=== PATIENT | male | born 1955 | race Caucasian/White ===

== ENCOUNTER 2019-11-25 06:55 | Outpatient (NON) | payer BC, SELFPAY ==
[2019-11-25 18:16] LABS: SARS-CoV-2 RNA PCR Negative
== END 2019-11-25 06:56 ==
PROVIDERS: PCP Family Medicine; Visit Provider Family Medicine
DX: Z20.828 Contact with and (suspected) exposure to other viral communicable diseases (principal)
CPT/HCPCS: 87635; C9803; U0003

== ENCOUNTER 2020-04-30 08:20 | Emergency (ER) | payer BC, SELFPAY ==
--- NOTE | ~2020-04-30 | CT_ITS ---
EXAMINATION: CT abdomen pelvis wo con DATE: 04/30/2020 09:16 INDICATION: Right flank pain TECHNIQUE: Computed tomography (CT) of the abdomen and pelvis was performed without intravenous contr ast. The dose-length product (DLP) was 1671.52 mGy-cm. Automated exposure control and iterative recon struction technique were employed. COMPARISON: 04/05/2018 FINDINGS: A calcified nodule of the right middle lobe is consistent with old granulomatous disease. T he heart size is normal. The liver, spleen, pancreas, gallbladder, and adrenal glands are normal. The re is a 3 mm stone in the distal right ureter which causes mild right hydroureteronephrosis. There is a 4 mm nonobstructing stone of the left kidney. No pathologically enlarged abdominal or pelvic lymph nodes are identified. There is no free intraperitoneal gas or evidence of bowel obstruction. The adria endix is normal. There is severe lower lumbar spondylosis. IMPRESSION: 1. 3 mm stone of the distal right ureter causing mild right hydroureteronephrosis. 2. Left nephrolithiasis. Reviewed, dictated and finalized at location A. ER [employer] IMPRESSION: 1. 3 mm stone of the distal right ureter causing mild right hydroureteronephros is. 2. Left nephrolithiasis.
--- NOTE | ~2020-04-30 | XR_ITS ---
EXAMINATION: XR abdomen/kub 1V INDICATION: Right flank pain TECHNIQUE: Supine views of the abdomen were obtained on 2 radiographs. COMPARISON: CT from today FINDINGS: There is a faint calcification of the right pelvis in the expected location of the distal u reter which may reflect the right distal ureteral stone seen on CT. A 4 mm stone is seen in the upper pole of the left kidney. The bowel gas pattern is normal. Calcifications are noted of the prostate. There is lower lumbar spondylosis. IMPRESSION: 1. Faint right pelvic calcification which could reflect the known right distal ureteral stone. 2. Left nephrolithiasis. Reviewed, dictated and finalized at location A. ER [employer]
[2020-04-30 08:37] VITALS: BP 162/82; PULSE 55; RESP 18; TEMP 36.7; O2SAT 99
[2020-04-30 08:43] VITALS: BP 135/93; PULSE 51; RESP 18; O2SAT 97
--- NOTE | 2020-04-30 08:59 | ED.ABDPAIN ---
HPI - Abdominal Pain General Chief Complaint: Abdominal Pain Stated Complaint: rt abd, groin and flank pain Time Seen by Provider: 04/30/20 08:36 Source: patient Mode of arrival: ambulatory Limitations: no limitations History of Present Illness HPI narrative: This is a 64 year old male with history of multiple medical problems who presents for evaluation right lower abdominal pain. He states his pain started yesterday. He describes his pain as if an arrow was shot through his right side. He has associated right groin, testicle pain with nausea. He also reports frequent urge to have a bowel movement but he denies diarrhea. He denies urinary symptoms, fever, chills. He has not taken anything for pain and he currently rates his pain 4/10. At it's most intense, his pain is 8/10. MD elicited complaint: abdominal pain Onset (ago): day(s) (1) Pain Consistency: intermittent Location: RLQ Quality: stabbing Radiation: R flank Exacerbating factors: movement Relieving factors: nothing Associated symptoms: nausea Related Data Home Medications Medication Instructions Recorded Confirmed aspirin 325 mg tablet 325 mg PO DAILY 04/30/19 03/10/20 irbesartan 150 mg tablet 150 mg PO DAILY 04/30/19 03/10/20 metoprolol tartrate 25 mg tablet 25 mg PO DAILY 04/30/19 03/10/20 simvastatin 10 mg tablet 10 mg PO DAILY 04/30/19 03/10/20 rivaroxaban 20 mg tablet 20 mg PO DAILY 03/10/20 03/10/20 Allergies Allergy/AdvReac Type Severity Reaction Status Date / Time No Known Allergies Allergy Verified 04/30/20 08:31 Review of Systems Review of Systems: All systems reviewed & are unremarkable except as noted in HPI and below Constitutional: Constitutional: Denies chills and Denies fever(s) Cardiovascular: Cardiovascular: Reports chest pain (chronic) Gastrointestinal: Gastrointestinal: Reports abdominal pain, Denies diarrhea, Reports nausea and Denies vomiting Genitourinary: Genitourinary: Denies dysuria and Denies urinary frequency Musculoskeletal: Musculoskeletal: Reports back pain [facility] Past Medical History Medical History (Updated 04/30/20 @ 11:06 by Bárbara Davis MD) Atrial fibrillation Cardiac arrhythmia Diabetes Essential (primary) hypertension Heart disease Hyperlipidemia SE[place]STI[place]N on CPAP Type 2 diabetes mellitus without complication, with no history of insulin use Surgical History Surgical History (Updated 03/10/20 @ 10:36 by Fazal Aguilar APRN) History of eye surgery History of hand surgery History of total left knee replacement Family History Family History (Updated 03/10/20 @ 10:38 by Fazal Aguilar APRN) Father Acute myocardial infarction Mother Carcinoma of colon Social History Social History (Updated 03/10/20 @ 10:39 by Fazal Aguilar APRN) Smoking status: Former smoker Alcohol intake: current Substance use: current Substance use type: marijuana Additional living arrangements comments: Additional occupation/education comments: Retired from [employer] Gender identity (if verbalized by the patient): Male Exam Const: General: no acute distress and alert Nutritional Appearance: obese Orientation/consciousness: patient oriented x3 Eyes: EOM: EOMs intact bilaterally Chest: Chest palpation & inspection: normal inspection of the chest Resp: Effort & Inspection: normal respiratory effort and no retractions Auscultation: clear to auscultation bilaterally Cardio: Rate: bradycardic Rhythm: regular rhythm GI: GI Palp: Yes Soft to palpation, No Tenderness to palpation present (GI) and No Guarding due to palpation present (GI) Auscultation: normal bowel sounds Back/Spine/Pelvis: Back: no CVA tenderness Skin: General skin exam: normal color Neuro: General: patient oriented x3, moves all extremities and CN's II-XI intact bilaterally Extrem: General: edema Course Reevaluation(s) Reevaluation #1: Patient states he feels better. I disc
[2020-04-30] MEDS: ONDANSETRON INJ 4 MG/2 ML VIAL IV PUSH (09:01)
[2020-04-30] MEDS: HYDROmorphone HCL INJ (*CRX) 1 MG/ML SYR 0.5 MG IV PUSH (09:01)
[2020-04-30 09:08] LABS: Basophils Percent Auto 0.4 % (0.2-1.2); Eosinophils Absolute Auto 0.2 K/mm3 (0-0.3); Eosinophils Percent Auto 3.6 % (0-4.4); Hematocrit 41.9 % (42.0-52.0); Hemoglobin 14.2 g/dL (14.0-18.0); Immature Granulocyte Absolute 0.02 K/mm3 (0.00-0.031); Immature Granulocyte Percent A 0.4 % (0-0.5); Lymphocytes Absolute Auto 1.37 K/mm3 (0.9-3.2); Lymphocytes Percent Auto 27.2 % (18.3-44.2); Mean Corpuscular HGB Conc 33.9 g/dl (32-36); Mean Corpuscular Hemoglobin 31.8 pg (26-34); Mean Corpuscular Volume 93.7 fl (80-100); Mean Platelet Volume 9.7 fl (7.4-10.4); Monocytes Absolute Auto 0.4 K/mm3 (0.1-0.6); Monocytes Percent Auto 8.3 % (2.6-8.5); Neutrophils Percent Auto 60.1 % (45.5-73.1); Platelet Count Result 138 k/mm3 (150-375); Red Blood Count 4.47 M/mm3 (4.6-6.20); Red Cell Distribution Width 13.5 % (11.5-14.5)
[2020-04-30 09:10] LABS: Add Urine Microscopic? YES; Appearance Urine Cloudy (Clear); Bacteria Urine Trace /hpf; Bilirubin Urine Negative (Negative); Blood Urine 3+ (Negative); Color Urine Yellow (Yellow); Glucose Urine UA Negative (Negative); Ketones Urine Negative (Negative); Leukocyte Esterase Ur Negative LEU/UL (Negative); Mucus Urine Rare /lpf; Nitrate Urine Negative (Negative); Protein Urine 2+ mg/dL (Negative); Specific Grav Ur 1.025 (1.001-1.035); Squamous Epithelial Cell Urine Rare /hpf (Few); Urobilinogen Urine Negative mg/dL (<2.0)
[2020-04-30 09:20] LABS: Alanine Aminotransferase 31 U/L (4-50); Albumin Level 4.3 g/dL (3.5-5.1); Alkaline Phosphatase 92 U/L (38-126); Anion Gap 4 mmol/L (8-16); Aspartate Amino Transferase 27 U/L (17-59); Bilirubin,Total 0.5 mg/dL (0.2-1.3); Blood Urea Nitrogen 18 mg/dL (9-20); Calcium 9.5 mg/dL (8.4-10.2); Carbon Dioxide 26 mmol/L (22-30); Chloride 109 mmol/L (98-107); Estimated CRCL calculation 116 ml/min; Estimated Glomerular Filt Rate > 60; Glucose 127 mg/dL (75-110); Lipase 123 U/L (23-300); Potassium 4.4 mmol/L (3.4-5.0); Sodium 139 mmol/L (137-145)
[2020-04-30 09:35] VITALS: TEMP 36.7
--- NOTE | 2020-04-30 09:36 | PC.NURSE ---
Pt resting on cart in its lowest position with call button and personal items within reach. Pt and updated on poc. No questions or concerns voiced. Pt advised to press call button for assistance.
[2020-04-30 10:12] VITALS: BP 120/68; PULSE 47; RESP 15; O2SAT 95
[2020-04-30 10:35] VITALS: BP 136/88; PULSE 75; RESP 13; TEMP 36.7
[2020-04-30 11:25] VITALS: BP 139/93; PULSE 52; RESP 20; TEMP 37; O2SAT 96
== END 2020-04-30 11:28 | disposition home or self-care (01) ==
PROVIDERS: Emergency Provider General Practice; PCP Internal Medicine
DX: N13.2 Hydronephrosis with renal and ureteral calculous obstruction (principal); I48.91 Unspecified atrial fibrillation; I11.9 Hypertensive heart disease without heart failure; E11.9 Type 2 diabetes mellitus without complications; E78.5 Hyperlipidemia, unspecified; G47.33 Obstructive sleep apnea (adult) (pediatric); Z79.01 Long term (current) use of anticoagulants; Z79.82 Long term (current) use of aspirin; Z96.652 Presence of left artificial knee joint; Z87.891 Personal history of nicotine dependence
CPT/HCPCS: 36415; 74018; 74176; 80053; 81001; 83690; 85025; 87086; 96374; 96375; 99284; J1170; J2405

== ENCOUNTER → 2020-09-21 06:53 | Outpatient (CLI) | payer BC, SELFPAY ==
[2020-09-21 18:17] LABS: SARS-CoV-2 RNA PCR Negative
== END ==
PROVIDERS: PCP Internal Medicine; Visit Provider Internal Medicine
DX: R68.89 Other general symptoms and signs (principal); Z20.822 Contact with and (suspected) exposure to COVID-19
CPT/HCPCS: C9803; U0003; U0005

== ENCOUNTER 2021-09-26 14:00 | Emergency (ER) | payer MEDICARE, SELFPAY ==
--- NOTE | 2021-09-26 14:25 | ED.LOWEXIN ---
HPI - Extremity Injury (Lower) General Chief Complaint: Extremity Injury, Lower Stated Complaint: Left leg Pain Time Seen by Provider: 09/26/21 14:25 Source: patient, RN notes reviewed and old records reviewed Mode of arrival: ambulatory Limitations: no limitations History of Present Illness HPI Narrative: 65-year-old male with a history of diabetes, A. fib presents to the [facility] with redness, pain to the left lower extremity lateral aspect. Patient states that he was working out at [employer] over the weekend woke up this morning with this red and painful area. Related Data Home Medications Medication Instructions Recorded Confirmed metoprolol tartrate 25 mg tablet 25 mg PO DAILY 04/30/19 09/26/21 simvastatin 10 mg tablet 10 mg PO DAILY 04/30/19 09/26/21 rivaroxaban 20 mg tablet (Xarelto) 20 mg PO DAILY 03/10/20 09/26/21 tamsulosin 0.4 mg capsule 0.4 mg PO DAILY 08/18/21 09/26/21 Allergies Allergy/AdvReac Type Severity Reaction Status Date / Time No Known Allergies Allergy Verified 09/26/21 14:26 Review of Systems Review of Systems: All systems reviewed & are unremarkable except as noted in HPI and below Constitutional: Constitutional: Reports no additional constitutional complaints, Denies chills and Denies fever(s) Eyes: Eyes: Reports no additional eye complaints ENT: Reports system reviewed and no additional complaints, except as documented Cardiovascular: Cardiovascular: Reports no additional cardiovascular complaints Respiratory: Respiratory: Reports no additional respiratory complaints Gastrointestinal: Gastrointestinal: Reports no additional gastrointestinal complaints Musculoskeletal: Musculoskeletal: Reports no additional musculoskeletal complaints Integumentary/Breasts: Skin/Breast: Reports as per HPI (red with increased warmth lateral left lower leg) Neurologic: Reports system reviewed and no additional complaints, except as documented Psychiatric: Psychiatric: Reports no additional psychiatric complaints Allergic/Immunologic: Allergic/Immunologic: Reports no additional allergic/immunologic complaints [facility] Past Medical History Medical History Atrial fibrillation Cardiac arrhythmia Diabetes Essential (primary) hypertension Heart disease Hyperlipidemia [place] on CPAP Type 2 diabetes mellitus without complication, with no history of insulin use Surgical History Surgical History History of eye surgery History of hand surgery History of total left knee replacement Family History Family History Father Acute myocardial infarction Mother Carcinoma of colon Social History Social History Smoking packs per day: 2 Smoking cigarettes per day: 40.0 Years smoked: 25 Smoking pack-years: 50.00 Smoking status: Former smoker Tobacco type: cigarettes Smokeless tobacco user: chewing tobacco Second hand tobacco smoke exposure: Yes Smoking end date: 02/19/99 Alcohol intake: current Alcohol use details: Social Substance use: current Substance use type: marijuana Additional living arrangements comments: Additional occupation/education comments: Retired from [employer] Gender identity (if verbalized by the patient): Male Sexual Orientation (if Verbalized by the Patient): Straight or Heterosexual Comments At the time of my signature, I reviewed and agree with the nursing past medical, surgical, social, and family history. There is no relevant family history pertinent to the patient complaint. Exam Const: General: healthy appearing, no acute distress and alert Nutritional Appearance: well nourished and obese Orientation/consciousness: patient oriented x3 Limitations: no limitations HENMT: Head: normal to inspection E
[2021-09-26 14:37] LABS: Glucose Point of Care 112 mg/dl (65-105)
[2021-09-26 16:34] VITALS: BP 133/80; PULSE 68; RESP 18; TEMP 36.6; O2SAT 98
== END 2021-09-26 14:50 | disposition home or self-care (01) ==
PROVIDERS: Emergency Provider Nurse Practitioner; PCP Internal Medicine
DX: L03.116 Cellulitis of left lower limb (principal); E11.9 Type 2 diabetes mellitus without complications; I48.91 Unspecified atrial fibrillation; I10 Essential (primary) hypertension; E78.5 Hyperlipidemia, unspecified; G47.33 Obstructive sleep apnea (adult) (pediatric); Z96.652 Presence of left artificial knee joint; F17.220 Nicotine dependence, chewing tobacco, uncomplicated
CPT/HCPCS: 82948; 99213; G0463